=== PATIENT | male | born 1950 | race Caucasian/White ===

== ENCOUNTER 2017-11-10 04:47 | Inpatient (IN) | payer MEDICARE, BC ==
[2017-11-10] MEDS: ASPIRIN 81 MG TAB PO ×2 (05:00→09:31)
[2017-11-10] MEDS: DILTIAZEM 25 MG INJ IV (05:01)
[2017-11-10 05:07] LABS: ADD MAN DIFF? NO
[2017-11-10 05:17] LABS: ABNORMAL IP MESSAGE 1; BASOPHIL # 0.1 10^3/ul (0.0-0.1); BASOPHILS % 0.4 % (0.0-2.0); EOSINOPHILS # 0.1 10^3/ul (0.0-0.5); EOSINOPHILS % 0.7 % (0.0-7.0); HEMATOCRIT 41.9 % (42.0-52.0); LYMPHOCYTES # 6.4 10^3/ul (0.8-2.9); LYMPHOCYTES % 42.4 % (15.0-51.0); MEAN CORPUSCULAR HEMOGLOBIN 30.4 pg (29.0-33.0); MEAN CORPUSCULAR HGB CONC 35.8 g/dl (32.0-37.0); MEAN CORPUSCULAR VOLUME 84.8 fl (82.0-101.0); MEAN PLATELET VOLUME 11.5 fl (7.4-10.4); MONOCYTE # 1.2 10^3/ul (0.3-0.9); MONOCYTES % 7.9 % (0.0-11.0); NEUTROPHIL # 7.1 10^3/ul (1.6-7.5); NEUTROPHILS % 47.3 % (39.0-77.0); PLATELET COUNT 117 10^3/UL (140-415); POSITIVE DIFF @See below; RED BLOOD COUNT 4.94 10^6/ul (4.70-6.10); RED CELL DISTRIBUTION WIDTH 12.6 % (11.5-14.5)
[2017-11-10 05:43] LABS: ANION GAP 18 (8-16); BLOOD UREA NITROGEN 17 mg/dl (7-20); CALCIUM 9.9 mg/dl (8.4-10.2); CARBON DIOXIDE 19 mmol/L (21-31); CHLORIDE 104 mmol/L (97-110); CREATININE 0.82 mg/dl (0.61-1.24); GLUCOSE 194 mg/dl (70-220); POTASSIUM 4.1 mmol/L (3.5-5.1); SODIUM 137 mmol/L (135-144)
[2017-11-10] MEDS: DILTIAZEM-D5W 125MG/125ML DRIP 125 ML IV (05:50)
[2017-11-10] MEDS: KETOROLAC 30 MG INJ IV (05:50)
[2017-11-10] MEDS: METOPROLOL 5 MG INJ IV (05:50)
[2017-11-10 05:55] LABS: B-TYPE NATRIURETIC PEPTIDE 66 PG/ML (0-125); TROPONIN-I 0.022 ng/ml (0.000-0.120)
[2017-11-10] MEDS ORDERED: IPRATROPIUM (NEB) 0.5 MG/2.5 ML AMP NEB (07:00)
[2017-11-10] MEDS ORDERED: LEVALBUTEROL (NEB) 0.63 MG/3 ML AMP HHN (07:00)
[2017-11-10] MEDS ORDERED: NACL 0.9% 3 ML SYG IV (07:00)
[2017-11-10] MEDS ORDERED: ONDANSETRON 4 MG INJ IV (07:00)
[2017-11-10] MEDS ORDERED: GLUCOSE GEL 15 GRAM TUBE PO ×2 (07:30)
[2017-11-10] MEDS ORDERED: GLUCAGON 1 MG INJ IM (07:30)
[2017-11-10] MEDS ORDERED: GLUCOSE GEL 15 GRAM TUBE BUCCAL (07:30)
[2017-11-10] MEDS ORDERED: DEXTROSE 50% 50 ML SYRINGE IV ×2 (07:30)
[2017-11-10 07:44] LABS: ADD MAN DIFF? NO
[2017-11-10 07:50] LABS: WHITE BLOOD COUNT 8.6 10^3/ul (4.8-10.8)
[2017-11-10 07:50] LABS: BASOPHILS % 0.5 % (0.0-2.0); EOSINOPHILS # 0.1 10^3/ul (0.0-0.5); EOSINOPHILS % 0.8 % (0.0-7.0); HEMATOCRIT 37.3 % (42.0-52.0); HEMOGLOBIN 12.9 g/dl (14.0-18.0); LYMPHOCYTES # 2.5 10^3/ul (0.8-2.9); MEAN CORPUSCULAR HEMOGLOBIN 30.6 pg (29.0-33.0); MEAN CORPUSCULAR HGB CONC 34.6 g/dl (32.0-37.0); MEAN CORPUSCULAR VOLUME 88.4 fl (82.0-101.0); MEAN PLATELET VOLUME 10.6 fl (7.4-10.4); MONOCYTE # 0.7 10^3/ul (0.3-0.9); MONOCYTES % 8.2 % (0.0-11.0); NEUTROPHIL # 5.2 10^3/ul (1.6-7.5); NEUTROPHILS % 60.3 % (39.0-77.0); PLATELET COUNT 130 10^3/UL (140-415); RED BLOOD COUNT 4.22 10^6/ul (4.70-6.10); RED CELL DISTRIBUTION WIDTH 12.5 % (11.5-14.5)
[2017-11-10 08:09] LABS: INR 1.03; PROTIME 13.6 Sec (11.9-14.9); PT RATIO 1.1
[2017-11-10 08:47] LABS: PARTIAL THROMBOPLASTIN TIME 23.4 Sec (23.0-35.0)
[2017-11-10] MEDS: ENOXAPARIN 40 MG/0.4 ML SYG SC ×2 (09:36→15:35)
[2017-11-10] MEDS: INSULIN ASPART [NOVOLOG] 3 ML PEN SC ×4 (09:41→21:11)
[2017-11-10 12:23] LABS: CREATINE KINASE 49 IU/L (23-200)
[2017-11-10 12:25] LABS: CK INDEX 5.4; CK-MB 2.64 ng/ml (0.0-2.4)
[2017-11-10 12:34] LABS: TROPONIN-I 0.229 ng/ml (0.000-0.120)
[2017-11-10] MEDS: ACETAMINOPHEN 325 MG TAB PO (14:52)
[2017-11-10 16:44] LABS: CREATINE KINASE 46 IU/L (23-200)
[2017-11-10 16:58] LABS: CK INDEX 5.4; CK-MB 2.49 ng/ml (0.0-2.4); TROPONIN-I 0.445 ng/ml (0.000-0.120)
[2017-11-10] MEDS: NITROGLYCERIN (SL) 0.4 MG TAB SL (20:24)
[2017-11-10] MEDS: VORTIOXETINE XX (20:36)
[2017-11-10] MEDS: LINACLOTIDE XX (20:36)
[2017-11-10] MEDS: morphine 2 MG INJ IV (20:42)
[2017-11-10] MEDS: INSULIN DETEMIR [LEVEMIR] (100 UNITS/ML) SYG SC (21:11)
[2017-11-10] MEDS: ENOXAPARIN 80 MG/0.8 ML SYG SC (21:11)
[2017-11-11] MEDS: LINACLOTIDE XX ×3 (01:00→17:00)
[2017-11-11] MEDS: VORTIOXETINE XX ×3 (01:00→17:00)
[2017-11-11] MEDS: ACCU-CHEK XX ×5 (02:55→21:00)
[2017-11-11] MEDS: PANTOPRAZOLE (EC) 40 MG TAB PO ×2 (06:00→06:01)
[2017-11-11] MEDS: CLOPIDOGREL 75 MG TAB PO (06:39)
[2017-11-11] MEDS: ATORVASTATIN 80 MG TAB PO (06:39)
[2017-11-11] MEDS: ACETAMINOPHEN 325 MG TAB PO ×2 (06:47→23:22)
[2017-11-11] MEDS: ASPIRIN 81 MG TAB PO (07:21)
[2017-11-11] MEDS: metFORMIN 500 MG TAB PO (07:21)
[2017-11-11] MEDS: INSULIN ASPART [NOVOLOG] 3 ML PEN SC ×7 (07:25→21:25)
[2017-11-11] MEDS: ENOXAPARIN 80 MG/0.8 ML SYG SC ×2 (07:27→21:26)
[2017-11-11] MEDS: INSULIN DETEMIR [LEVEMIR] (100 UNITS/ML) SYG SC (07:32)
[2017-11-11] MEDS: FENOFIBRATE 145 MG TAB PO (08:30)
[2017-11-11] MEDS: EZETIMIBE 10 MG TAB PO (08:31)
[2017-11-11] MEDS: BENAZEPRIL 10 MG TAB PO (08:32)
[2017-11-11] MEDS ORDERED: NON-FORMULARY/PATIENT OWN MED (Linaclotide (Linzess) 145 MCG) PO (09:00)
[2017-11-11] MEDS ORDERED: VORTIOXETINE HYDROBROMIDE 5 MG PO (09:00)
[2017-11-11] MEDS ORDERED: RAMIPRIL 2.5 MG PO (09:00)
[2017-11-11 09:11] LABS: HEMOGLOBIN A1C 9.2 % (0-5.9)
[2017-11-11 09:26] LABS: ALANINE AMINOTRANSFERASE 31 IU/L (13-69); ALBUMIN 3.1 g/dl (3.3-4.9); ALBUMIN/GLOBULIN RATIO 1.24; ALKALINE PHOSPHATASE 37 IU/L (42-121); ANION GAP 11 (8-16); ASPARTATE AMINO TRANSFERASE 12 IU/L (15-46); BILIRUBIN,INDIRECT 0.5 mg/dl (0-1.1); BILIRUBIN,TOTAL 0.5 mg/dl (0.2-1.3); BLOOD UREA NITROGEN 19 mg/dl (7-20); CALCIUM 9.7 mg/dl (8.4-10.2); CARBON DIOXIDE 27 mmol/L (21-31); CHLORIDE 104 mmol/L (97-110); CHOL/HDL RATIO 3.1 RATIO; CHOLESTEROL 106 mg/dl (100-200); CREATININE 0.58 mg/dl (0.61-1.24); GLUCOSE 157 mg/dl (70-220); HDL CHOLESTEROL 34 mg/dl (30-78); LDL CHOLESTEROL,CALCULATED 12 mg/dl; MAGNESIUM 1.7 mg/dl (1.7-2.5); POTASSIUM 3.8 mmol/L (3.5-5.1); SODIUM 138 mmol/L (135-144); TOTAL PROTEIN 5.6 g/dl (6.1-8.1); TRIGLYCERIDES 301 mg/dl (0-149)
[2017-11-11 09:36] LABS: TROPONIN-I 0.351 ng/ml (0.000-0.120)
[2017-11-11 09:37] LABS: VALPROATE 10 ug/ml (50-100)
[2017-11-11 10:09] LABS: ADD MAN DIFF? NO
[2017-11-11 10:17] LABS: WHITE BLOOD COUNT 7.9 10^3/ul (4.8-10.8)
[2017-11-11 10:17] LABS: BASOPHILS % 0.4 % (0.0-2.0); EOSINOPHILS # 0.1 10^3/ul (0.0-0.5); EOSINOPHILS % 1.1 % (0.0-7.0); HEMATOCRIT 39.4 % (42.0-52.0); HEMOGLOBIN 13.6 g/dl (14.0-18.0); LYMPHOCYTES # 2.2 10^3/ul (0.8-2.9); LYMPHOCYTES % 27.9 % (15.0-51.0); MEAN CORPUSCULAR HEMOGLOBIN 30.4 pg (29.0-33.0); MEAN CORPUSCULAR HGB CONC 34.5 g/dl (32.0-37.0); MEAN CORPUSCULAR VOLUME 88.1 fl (82.0-101.0); MEAN PLATELET VOLUME 10.1 fl (7.4-10.4); MONOCYTE # 0.8 10^3/ul (0.3-0.9); MONOCYTES % 9.6 % (0.0-11.0); NEUTROPHIL # 4.7 10^3/ul (1.6-7.5); NEUTROPHILS % 60.4 % (39.0-77.0); PLATELET COUNT 133 10^3/UL (140-415); RED BLOOD COUNT 4.47 10^6/ul (4.70-6.10); RED CELL DISTRIBUTION WIDTH 13.1 % (11.5-14.5)
[2017-11-11 10:41] LABS: CREATINE KINASE 25 IU/L (23-200)
[2017-11-11 10:49] LABS: CK INDEX 3.8; CK-MB 0.94 ng/ml (0.0-2.4)
[2017-11-11 10:58] LABS: TROPONIN-I 0.334 ng/ml (0.000-0.120)
[2017-11-11] MEDS: morphine 2 MG INJ IV (11:19)
[2017-11-11] MEDS ORDERED: BISACODYL 10 MG SUPP PR (11:30)
[2017-11-11] MEDS: DEXTROSE 5%-0.45% NACL 1,000 ML IV (12:14)
[2017-11-11] MEDS: POLYETHYLENE GLYCOL 17 GM PACKET PO (13:00)
[2017-11-11] MEDS ORDERED: LIDOCAINE 1% (MDV) 20 ML INJ (14:25)
[2017-11-11] MEDS ORDERED: VERAPAMIL 5 MG INJ (14:25)
[2017-11-11] MEDS ORDERED: HEPARIN 1000 UNITS/ML 10 ML INJ (14:25)
[2017-11-11] MEDS ORDERED: IODIXANOL LOCM 100 ML BTL (14:25)
[2017-11-11] MEDS ORDERED: MIDAZOLAM 1 MG/ML 2 ML INJ (14:25)
[2017-11-11] MEDS ORDERED: FENTAnyl 50 MCG/ML VIAL (14:26)
[2017-11-11] MEDS ORDERED: NITROGLYCERIN (IC) 100 MCG/ML INJ (14:26)
[2017-11-11] MEDS: DIVALPROEX (ER) 250 MG TAB PO (15:00)
[2017-11-11] MEDS ORDERED: ONDANSETRON 4 MG INJ IV (16:00)
[2017-11-11] MEDS ORDERED: AL HYDROX/MG HYDROX/SIMETH 30 ML CUP PO (16:00)
[2017-11-11] MEDS ORDERED: morphine 2 MG INJ IV (16:00)
[2017-11-11] MEDS: SOD CHLORIDE 0.9% 1,000 ML IV (16:09)
[2017-11-11] MEDS: METOPROLOL 25 MG TAB PO (21:04)
[2017-11-12] MEDS: VORTIOXETINE XX ×2 (01:00→09:00)
[2017-11-12] MEDS: LINACLOTIDE XX ×2 (01:00→09:00)
[2017-11-12] MEDS: ACCU-CHEK XX ×2 (03:00→06:56)
[2017-11-12 06:04] LABS: ADD MAN DIFF? NO
[2017-11-12 06:09] LABS: BASOPHILS % 0.4 % (0.0-2.0); EOSINOPHILS # 0.1 10^3/ul (0.0-0.5); EOSINOPHILS % 1.1 % (0.0-7.0); HEMATOCRIT 39.6 % (42.0-52.0); HEMOGLOBIN 13.4 g/dl (14.0-18.0); LYMPHOCYTES # 2.5 10^3/ul (0.8-2.9); LYMPHOCYTES % 27.1 % (15.0-51.0); MEAN CORPUSCULAR HGB CONC 33.8 g/dl (32.0-37.0); MEAN CORPUSCULAR VOLUME 88.6 fl (82.0-101.0); MEAN PLATELET VOLUME 10.2 fl (7.4-10.4); MONOCYTE # 0.9 10^3/ul (0.3-0.9); MONOCYTES % 9.8 % (0.0-11.0); NEUTROPHIL # 5.6 10^3/ul (1.6-7.5); PLATELET COUNT 125 10^3/UL (140-415); RED BLOOD COUNT 4.47 10^6/ul (4.70-6.10); RED CELL DISTRIBUTION WIDTH 13.1 % (11.5-14.5)
[2017-11-12 06:09] LABS: WHITE BLOOD COUNT 9.3 10^3/ul (4.8-10.8)
[2017-11-12] MEDS: PANTOPRAZOLE (EC) 40 MG TAB PO (06:37)
[2017-11-12 06:40] LABS: ANION GAP 11 (8-16); BLOOD UREA NITROGEN 22 mg/dl (7-20); CALCIUM 9.7 mg/dl (8.4-10.2); CARBON DIOXIDE 28 mmol/L (21-31); CHLORIDE 103 mmol/L (97-110); CREATININE 0.72 mg/dl (0.61-1.24); GLUCOSE 146 mg/dl (70-220); MAGNESIUM 1.9 mg/dl (1.7-2.5); POTASSIUM 4.1 mmol/L (3.5-5.1); SODIUM 138 mmol/L (135-144)
[2017-11-12] MEDS ORDERED: INSULIN DETEMIR [LEVEMIR] (100 UNITS/ML) SYG SC (08:00)
[2017-11-12] MEDS: metFORMIN 500 MG TAB PO (08:24)
[2017-11-12] MEDS: ENOXAPARIN 80 MG/0.8 ML SYG SC (08:25)
[2017-11-12] MEDS: INSULIN DETEMIR [LEVEMIR] (100 UNITS/ML) SYG SC (08:25)
[2017-11-12] MEDS: INSULIN ASPART [NOVOLOG] 3 ML PEN SC ×2 (08:26→08:27)
[2017-11-12] MEDS: POLYETHYLENE GLYCOL 17 GM PACKET PO (08:30)
[2017-11-12] MEDS: DIVALPROEX (ER) 250 MG TAB PO (08:31)
[2017-11-12] MEDS: ASPIRIN 81 MG TAB PO (08:31)
[2017-11-12] MEDS: EZETIMIBE 10 MG TAB PO (08:31)
[2017-11-12] MEDS: FENOFIBRATE 145 MG TAB PO (08:31)
[2017-11-12] MEDS: BENAZEPRIL 10 MG TAB PO (08:32)
[2017-11-12] MEDS: METOPROLOL 25 MG TAB PO (08:34)
[2017-11-12 11:37] LABS: ADD UMIC YES; UR ASCORBIC ACID NEGATIVE (NEGATIVE); UR BACTERIA FEW /HPF (NONE SEEN); UR BILIRUBIN (Dip) NEGATIVE (NEGATIVE); UR BLOOD (Dip) 1+ mg/dL (NEGATIVE); UR CLARITY CLEAR (CLEAR); UR COLOR YELLOW (YELLOW); UR GLUCOSE (Dip) NEGATIVE (NEGATIVE); UR KETONES (Dip) NEGATIVE (NEGATIVE); UR LEUKOCYTE ESTERASE (Dip) NEGATIVE Leu/ul (NEGATIVE); UR NITRITE (Dip) NEGATIVE (NEGATIVE); UR RBC 0 /HPF (0-5); UR TOTAL PROTEIN (Dip) NEGATIVE (NEGATIVE); UR UROBILINOGEN (Dip) 2+ mg/dL (NEGATIVE); UR WBC 5 /HPF (0-5)
== END 2017-11-12 11:48 | disposition home or self-care (01) | DRG 281 ==
LOC: E/R 04:47 → 6WM 06:02
PROC: 4A023N7 Measurement of Cardiac Sampling and Pressure, Left Heart, Percutaneous Approach (ICD-10-PCS; principal; 2017-11-11 14:40)
PROC: B211YZZ Fluoroscopy of Multiple Coronary Arteries using Other Contrast (ICD-10-PCS; 2017-11-11 14:40)
PROC: B215YZZ Fluoroscopy of Left Heart using Other Contrast (ICD-10-PCS; 2017-11-11 14:40)
DX: I21.A1 Myocardial infarction type 2 (principal); R65.10 Systemic inflammatory response syndrome (SIRS) of non-infectious origin without acute organ dysfunction; I50.30 Unspecified diastolic (congestive) heart failure; I25.10 Atherosclerotic heart disease of native coronary artery without angina pectoris; I48.0 Paroxysmal atrial fibrillation; E78.1 Pure hyperglyceridemia; E11.9 Type 2 diabetes mellitus without complications; D69.6 Thrombocytopenia, unspecified; K21.9 Gastro-esophageal reflux disease without esophagitis; M19.90 Unspecified osteoarthritis, unspecified site; K59.09 Other constipation; F41.9 Anxiety disorder, unspecified; F32.9 Major depressive disorder, single episode, unspecified; Z95.5 Presence of coronary angioplasty implant and graft; Z88.2 Allergy status to sulfonamides; Z82.49 Family history of ischemic heart disease and other diseases of the circulatory system
CPT/HCPCS: 36415; 71045; 80048; 80053; 80061; 80164; 81001; 82550; 82553; 82962; 83036; 83735; 83880; 84443; 84484; 85025; 85610; 85730; 93005; 93306; 93458; 96374; 96375; 99285-25